=== PATIENT | female | born 1995 | race African-American/Black ===

== ENCOUNTER 2021-02-28 20:06 | Emergency (ER) | payer OTHER, SELFPAY ==
[2021-02-28 20:07] VITALS: BP 150/100; PULSE 91; RESP 16; TEMP 37.2; O2SAT 100
--- NOTE | 2021-02-28 21:01 | ED.FEMALEGU ---
HPI - Female Genitourinary General Chief complaint: Urogenital-Female Stated complaint: blood in urine Time Seen by Provider: 02/28/21 20:41 Source: patient Mode of arrival: ambulatory Limitations: no limitations History of Present Illness HPI Narrative: Patient complaining of burning urination and blood in the urine started 1 day ago. Patient denies any fevers, chills, nausea, vomiting, abdominal pain. Related Data Allergies Allergy/AdvReac Type Severity Reaction Status Date / Time No Known Allergies Allergy Verified 02/28/21 20:42 Review of Systems Review of Systems: CONSTITUTIONAL: Denies fever, chills, or sweats. EYES: Denies visual changes, redness, or discharge. ENT: Denies rhinorrhea, congestion, sore throat, or otalgia. CARDIOVASCULAR: Denies chest pain, palpitations, or edema. RESPIRATORY: Denies cough or dyspnea. GASTROINTESTINAL: Denies abdominal pain, nausea, vomiting, or diarrhea. GENITOURINARY: Denies dysuria or hematuria. SKIN: Denies rash or itching. MUSCULOSKELETAL: Denies back pain, joint pain, or myalgia. NEUROLOGIC: Denies headache, numbness, or weakness. PSYCHIATRIC: Denies anxiety or depression. Exam Narrative: General appearance: Well-developed, well-nourished Chest and respiratory: Airway patent, no respiratory distress, no accessory muscle use Heart: Regular rate/rhythm Abdomen: Soft, nontender, no organomegaly, quiet bowel sounds Neurologic: Alert and oriented ?3, Course Course Emergency Course: Stable Vital Signs Vital signs: Vital Signs Temperature 37.2 C 02/28/21 20:07 Pulse Rate 91 02/28/21 20:07 Respiratory Rate 16 02/28/21 20:07 Blood Pressure 150/100 H 02/28/21 20:07 Pulse Oximetry 100 02/28/21 20:07 Temperature 37.2 C 02/28/21 20:07 Pulse Rate 72 02/28/21 21:45 Respiratory Rate 15 02/28/21 21:45 Blood Pressure 135/81 02/28/21 21:45 Pulse Oximetry 100 02/28/21 21:45 MDM - Female Genitourinary Lab Data Labs: Lab Results 02/28/21 Range/Units 21:00 Urine Color Yellow (Yellow) Urine Appearance Turbid H (Clear) Urine pH 6.0 (5.0-9.0) Ur Specific [place] 1.020 (1.001-1.035) Urine Protein 2+ H (Negative) mg/dL Urine Glucose (UA) Negative (Negative) mg/dL Urine Ketones Negative (Negative) mg/dL Ur Blood (Man) 3+ H (Negative) Urine Nitrate Negative (Negative) Urine Bilirubin Negative (Negative) Urine Urobilinogen 2.0 H (<2.0) mg/dL Leukocyte Esterase Rfl 3+ H (Negative) SALLIE/UL Urine RBC >75 H (0-2) /hpf Urine WBC >75 H /hpf Urine WBC Clumps Present H (None) /HPF Ur Squamous Epith Cells Few (Few) /hpf Urine Bacteria 1+ H /hpf Urine Mucus Moderate H /lpf UCG Bedside Result Negative Reference Range: Negative Critical Care Time Critical Care Time Critical Care Time: No Discharge Plan Discharge Clinical Impression: Urinary tract infection Qualifiers: Urinary tract infection type: site unspecified Hematuria presence: with hematuria Qualified Code(s): N39.0 - Urinary tract infection, site not specified Patient Disposition: Home, Self-Care Condition: Stable Instructions: Antibiotic Form, Urinary Tract Infection in Women (ED) Additional Instructions: Return if symptoms are worsening , call your family physician for appointment, take Tylenol as as needed for aches and pain, continue home medications. Prescriptions: New nitrofurantoin monohyd/m-cryst [Macrobid] 100 mg capsule 100 mg PO Q12H 5 Days Qty: 10 RF: 0 phenazopyridine [Pyridium] 200 mg tablet 200 mg PO TID PRN (Reason: pain) Qty: 6 RF: 0 Fol
[2021-02-28 21:45] VITALS: BP 135/81; PULSE 72; RESP 15; O2SAT 100
[2021-02-28 22:00] LABS: Add Urine Microscopic? YES; Appearance Urine Turbid (Clear); Bacteria Urine 1+ /hpf; Bilirubin Urine Negative (Negative); Blood Urine 3+ (Negative); Color Urine Yellow (Yellow); Glucose Urine UA Negative (Negative); Ketones Urine Negative (Negative); Leukocyte Esterase Ur 3+ LEU/UL (Negative); Mucus Urine Moderate /lpf; Nitrate Urine Negative (Negative); Protein Urine 2+ mg/dL (Negative); RBC Urine >75 /hpf (0-2); Squamous Epithelial Cell Urine Few /hpf (Few); WBC Clumps Urine Present /HPF; WBC Urine >75 /hpf
[2021-02-28] MEDS: IBUPROFEN 400 MG TABLET 800 MG PO (23:18)
[2021-02-28] MEDS: NITROFURANTOIN MONOHYD MACROCR 100 MG CAP PO (23:18)
[2021-02-28] MEDS: PHENAZOPYRIDINE HCL 100 MG TABLET 200 MG PO (23:18)
== END 2021-02-28 23:32 | disposition home or self-care (01) ==
PROVIDERS: Emergency Provider Emergency Medicine
DX: N39.0 Urinary tract infection, site not specified (principal)
CPT/HCPCS: 81001; 81025; 87077; 87086; 87088; 87186; 99283; A9270